=== PATIENT | male | born 1955 | race Caucasian/White ===

== ENCOUNTER 2019-03-12 21:24 | Inpatient (IN) | payer SELFPAY ==
[~2019-03-12] VITALS: Ht 180.3 cm; Wt 87.1 kg
[~2019-03-12 21:24] MED LIST: AMOX-559 PO; CYC10 PO; DAR100 PO; IBU600 PO; IBU800 PO; LEVO25TA56 PO; LOR5 PO; SIMV-42 PO; VALS1TAB96 PO
[2019-03-12] MEDS ORDERED: ACETAMINOPHEN 325 MG TAB PO PRN (22:00)
[2019-03-12] MEDS ORDERED: MAG HYD/AL HYD/SIMETH 30ML UDC PO PRN (22:00)
[2019-03-12 22:30] VITALS: BP 157/105
[2019-03-13] MEDS ORDERED: MULTIVITAMINS TAB PO SCH (09:00)
== END 2019-03-13 00:01 | disposition still patient (30) | DRG 951 ==
LOC: BHS 21:24
PROVIDERS: ADMIT Nurse Practitioner Psychiatric/Mental Health; ATTEND Nurse Practitioner Psychiatric/Mental Health
DX: Z02.9 Encounter for administrative examinations, unspecified (principal)